=== PATIENT | male | born 1950 | race Caucasian/White ===

== ENCOUNTER 2018-09-09 15:48 | Inpatient (IN) | payer MEDICARE, BC ==
[~2018-09-09] VITALS: Ht 175.3 cm; Wt 68.2 kg
[2018-09-09] MEDS ORDERED: LORAZEPAM 2MG/ML CPJ IM ONE (17:45)
[2018-09-09] MEDS ORDERED: SODIUM CHLORIDE 0.9% 1000ML BAG (SEPSIS BOLUS) IV ONE (17:45)
[2018-09-09 18:17] LABS: HEMATOCRIT. 23.2 % (42.0-52.0); MEAN CORPUSCULAR HEMOGLOBIN 21.2 pg (28.0-32.0); MEAN CORPUSCULAR VOLUME 70.8 fL (80.0-94.0); MEAN PLATELET VOLUME 6.2 fl (7.4-10.4); PLATELET 430 x1000/uL (130-400); RED BLOOD CELL COUNT 3.27 mill/uL (4.7-6.1); RED CELL DISTRIBUTION WIDTH 18.8 % (11.6-14.6)
[2018-09-09 18:20] LABS: CHLORIDE 100 mEq/L (98-107)
[2018-09-09 18:21] LABS: HEMOGLOBIN. 6.9 g/dL (14.0-18.0)
[2018-09-09 18:22] LABS: INR 1.1; PARTIAL THROMBOPLASTIN TIME 30.1 sec (23.4-31.0)
[2018-09-09] MEDS ORDERED: VANCOMYCIN 1 G PREMIX 200 ML IV SCH ×2 (18:30→22:45)
[2018-09-09] MEDS ORDERED: PIPERACILLIN/TAZ 3.375G PREMIX 50 ML IV ONE (18:30)
[2018-09-09] MEDS ORDERED: LORAZEPAM 2MG/ML CPJ IV ONE ×2 (18:30→19:15)
[2018-09-09 18:48] LABS: PLATELET ESTIMATE NORMAL
[2018-09-09] MEDS ORDERED: LORAZEPAM 2MG/ML CPJ ONE (19:21)
[2018-09-09] MEDS ORDERED: MAGNESIUM/ALUMINUM HYDROXIDE/SIMETHICONE 30ML UDC PO PRN (22:45)
[2018-09-09] MEDS ORDERED: ONDANSETRON HCL 4MG/2ML INJ IV PRN (22:45)
[2018-09-09] MEDS ORDERED: LORAZEPAM 2MG/ML CPJ IV PRN (22:45)
[2018-09-09] MEDS ORDERED: DIPHENHYDRAMINE 50MG/ML VIAL IV PRN (22:45)
[2018-09-09] MEDS ORDERED: ACETAMINOPHEN 325MG TABLET PO PRN (22:45)
[2018-09-09] MEDS ORDERED: CLONIDINE 0.1MG TABLET PO PRN (22:45)
[2018-09-09] MEDS ORDERED: VANCOMYCIN 1 G PREMIX 200 ML IV NR (23:28)
[2018-09-10] VITALS (25 sets, daily range): BP systolic 91–158; BP diastolic 48–91
[2018-09-10] MEDS ORDERED: PIPERACILLIN/TAZ 3.375G PREMIX 50 ML IV NR (03:00)
[2018-09-10] MEDS ORDERED: ONDANSETRON HCL 4MG/2ML INJ IV STA (04:24)
[2018-09-10] MEDS ORDERED: ETOMIDATE 2MG/ML 10ML VIAL IV ONE (04:30)
[2018-09-10] MEDS ORDERED: SUCCINYLCHOLINE CHLORIDE 200MG/10ML IV ONE (04:30)
[2018-09-10] MEDS ORDERED: PROPOFOL 10MG/ML 100ML 100 ML IV ONE (04:30)
[2018-09-10] MEDS ORDERED: CLONIDINE 0.1MG TABLET NG PRN (04:45)
[2018-09-10 05:14] LABS: BASOPHILS % 0.4 % (0.0-2.0); EOSINOPHILS % 0.1 % (0.0-5.0); HEMOGLOBIN. 9.5 g/dL (14.0-18.0); LYMPHOCYTES % 7.4 % (20.0-50.0); MEAN CORPUSCULAR HEMOGLOBIN 22.2 pg (28.0-32.0); MEAN CORPUSCULAR VOLUME 74.5 fL (80.0-94.0); MEAN PLATELET VOLUME 6.5 fl (7.4-10.4); NEUTROPHILS % 85.1 % (40.0-76.0); PLATELET 552 x1000/uL (130-400); RED CELL DISTRIBUTION WIDTH 19.8 % (11.6-14.6)
[2018-09-10 05:21] LABS: CHLORIDE 104 mEq/L (98-107)
[2018-09-10 05:24] LABS: CLARITY URINE CLEAR (CLEAR); COLOR URINE YELLOW (YELLOW); KETONES URINE TRACE (NEGATIVE); LEUKOCYTE ESTERASE URINE NEGATIVE (NEGATIVE); NITRITE URINE NEGATIVE (NEGATIVE); OCCULT BLOOD URINE NEGATIVE (NEGATIVE); PROTEIN URINE NEGATIVE (NEGATIVE); SPECIFIC GRAVITY URINE 1.016 (1.005-1.030)
[2018-09-10 05:27] LABS: PHOSPHORUS 3.5 mg/dL (2.5-4.9)
[2018-09-10 05:33] LABS: BG CARBOXYHEMOGLOBIN 0.6 % (0.5-1.5); BG DEOXYHEMOGLOBIN 20.2 % (0.0-5.0); BG FRACTION INSPIRED OXYGEN 50; BG HCO3 ACT 21.4 mmol/L (22.0-26.0); BG METHEMOGLOBIN 0.2 % (0.0-1.5); BG OXYGEN SATURATION 79.6 % (92.0-98.5); BG PCO2 35.7 mmHg (35.0-45.0); BG PH 7.395 (7.350-7.450); BG PO2 46.7 mmHg (75.0-100.0); BG SAMPLE SITE LEFT RADIAL; BG TIDAL VOLUME(mL) 500 mL; BG TOTAL HEMOGLOBIN 9.9 g/dL (12.0-18.0); BG VENT MODE VENT - A/C; BG VENT RATE 14 set
[2018-09-10] MEDS ORDERED: MIDAZOLAM HCL 50 MG in DEXTROSE 5% WATER 40 ML IV ONE (06:00)
[2018-09-10] MEDS ORDERED: ACETAMINOPHEN 325MG TABLET NG PRN (06:45)
[2018-09-10] MEDS ORDERED: PROPOFOL 10MG/ML 100ML 100 ML IV PRN (14:00)
[2018-09-10] MEDS ORDERED: MIDAZOLAM HCL 50 MG in DEXTROSE 5% WATER 50ML IV PRN (15:30)
[2018-09-10] MEDS ORDERED: VANCOMYCIN 1 G PREMIX 200 ML IV SCH (16:00)
[2018-09-10] MEDS: FAMOTIDINE 20MG/2ML VIAL IV SCH (19:46)
[2018-09-10] MEDS: SODIUM CHLORIDE 0.9% 1,000 ML IV SCH (19:46)
[2018-09-10] MEDS: PIPERACILLIN/TAZ 3.375G PREMIX 50 ML IV SCH (19:47)
[2018-09-10] MEDS: ENOXAPARIN 40MG/0.4ML SYR SUBCUT SCH (19:47)
[2018-09-10] MEDS: ACETYLCYSTEINE 100MG/ML 10% VIAL 4ML INH SCH (20:26)
[2018-09-10] MEDS: IPRATROPIUM/ALBUTEROL 0.5-3(2.5)MG/3ML NEB HHN SCH (20:26)
[2018-09-11] VITALS (92 sets, daily range): BP systolic 120–189; BP diastolic 40–139
[2018-09-11] MEDS: PIPERACILLIN/TAZ 3.375G PREMIX 50 ML IV SCH ×2 (02:13→09:08)
[2018-09-11] MEDS: IPRATROPIUM/ALBUTEROL 0.5-3(2.5)MG/3ML NEB HHN SCH ×4 (02:52→20:53)
[2018-09-11] MEDS ORDERED: HYDRALAZINE 20MG/ML VIAL IV PRN (03:30)
[2018-09-11] MEDS: HYDROMORPHONE HCL/PF 2MG/ML CPJ IV PRN ×2 (04:14→22:30)
[2018-09-11 05:40] LABS: HEMATOCRIT. 24.2 % (42.0-52.0); HEMOGLOBIN. 7.5 g/dL (14.0-18.0); MEAN CORPUSCULAR HEMOGLOBIN 22.7 pg (28.0-32.0); MEAN CORPUSCULAR VOLUME 73.1 fL (80.0-94.0); MEAN PLATELET VOLUME 6.7 fl (7.4-10.4); PLATELET 370 x1000/uL (130-400); RED BLOOD CELL COUNT 3.31 mill/uL (4.7-6.1); RED CELL DISTRIBUTION WIDTH 20.1 % (11.6-14.6)
[2018-09-11 06:15] LABS: CHLORIDE 109 mEq/L (98-107)
[2018-09-11 07:32] LABS: BG CARBOXYHEMOGLOBIN 0.6 % (0.5-1.5); BG DEOXYHEMOGLOBIN 0.6 % (0.0-5.0); BG HCO3 ACT 19.8 mmol/L (22.0-26.0); BG METHEMOGLOBIN 0.3 % (0.0-1.5); BG OXYGEN SATURATION 99.4 % (92.0-98.5); BG OXYHEMOGLOBIN 98.5 % (94.0-97.0); BG PCO2 30.6 mmHg (35.0-45.0); BG PH 7.428 (7.350-7.450); BG PO2 197.6 mmHg (75.0-100.0); BG SAMPLE SITE RIGHT RADIAL; BG TIDAL VOLUME(mL) 500 mL; BG TOTAL HEMOGLOBIN 7.9 g/dL (12.0-18.0); BG VENT MODE VENT - A/C; BG VENT RATE 14 set
[2018-09-11] MEDS: ACETYLCYSTEINE 100MG/ML 10% VIAL 4ML INH SCH ×2 (07:59→14:46)
[2018-09-11] MEDS: SODIUM CHLORIDE 0.9% 1,000 ML IV SCH (08:24)
[2018-09-11 08:38] LABS: PLATELET ESTIMATE NORMAL
[2018-09-11] MEDS: FAMOTIDINE 20MG/2ML VIAL IV SCH ×2 (08:53→22:19)
[2018-09-11] MEDS ORDERED: MAGNESIUM 2 G PREMIX 50 ML IV SCH (10:00)
[2018-09-11] MEDS ORDERED: LIDOCAINE HCL/PF 1% 2ML VIAL ONE (10:52)
[2018-09-11] MEDS: VANCOMYCIN 750 MG PREMIX 150 ML IV SCH ×2 (14:00→14:58)
[2018-09-11 23:20] LABS: MEAN CORPUSCULAR HEMOGLOBIN 22.6 pg (28.0-32.0); MEAN CORPUSCULAR VOLUME 72.3 fL (80.0-94.0); PLATELET 364 x1000/uL (130-400); RED BLOOD CELL COUNT 2.72 mill/uL (4.7-6.1); RED CELL DISTRIBUTION WIDTH 19.5 % (11.6-14.6)
[2018-09-11 23:27] LABS: HEMOGLOBIN 6.2 g/dL (14.0-18.0)
[2018-09-11 23:28] LABS: HEMATOCRIT 19.7 % (42.0-52.0)
[2018-09-12] VITALS (42 sets, daily range): BP systolic 105–139; BP diastolic 48–94
[2018-09-12] MEDS: SODIUM CHLORIDE 0.9% 1,000 ML IV SCH ×3 (01:52→21:42)
[2018-09-12] MEDS: ACETYLCYSTEINE 100MG/ML 10% VIAL 4ML INH SCH ×3 (03:11→16:35)
[2018-09-12] MEDS: IPRATROPIUM/ALBUTEROL 0.5-3(2.5)MG/3ML NEB HHN SCH ×4 (03:11→20:20)
[2018-09-12] MEDS: PROPOFOL 10MG/ML 100ML 100 ML IV PRN ×2 (03:46→14:24)
[2018-09-12] MEDS: PIPERACILLIN/TAZ 3.375G PREMIX 50 ML IV SCH ×3 (03:47→21:41)
[2018-09-12 05:48] LABS: HEMATOCRIT. 21.2 % (42.0-52.0); MEAN CORPUSCULAR HEMOGLOBIN 22.2 pg (28.0-32.0); MEAN CORPUSCULAR VOLUME 73.5 fL (80.0-94.0); MEAN PLATELET VOLUME 6.7 fl (7.4-10.4); PLATELET 346 x1000/uL (130-400); RED BLOOD CELL COUNT 2.88 mill/uL (4.7-6.1); RED CELL DISTRIBUTION WIDTH 20.1 % (11.6-14.6)
[2018-09-12 05:55] LABS: CHLORIDE 110 mEq/L (98-107)
[2018-09-12 06:24] LABS: HEMOGLOBIN. 6.4 g/dL (14.0-18.0)
[2018-09-12] MEDS: FAMOTIDINE 20MG/2ML VIAL IV SCH ×2 (08:41→20:37)
[2018-09-12] MEDS: SODIUM HYPOCHLORITE 0.125% 473ML SOLUTION TOP SCH (08:41)
[2018-09-12 10:57] LABS: PLATELET ESTIMATE NORMAL
[2018-09-12] MEDS: VANCOMYCIN 750 MG PREMIX 150 ML IV SCH (14:24)
[2018-09-12] MEDS: IPRATROPIUM/ALBUTEROL 0.5-3(2.5)MG/3ML NEB INH PRN (16:35)
[2018-09-12] MEDS: ENOXAPARIN 40MG/0.4ML SYR SUBCUT SCH (17:05)
[2018-09-12] MEDS: HYDROMORPHONE HCL/PF 2MG/ML CPJ IV PRN (17:43)
[2018-09-13] VITALS (34 sets, daily range): BP systolic 90–150; BP diastolic 41–88
[2018-09-13] MEDS: PROPOFOL 10MG/ML 100ML 100 ML IV PRN (01:08)
[2018-09-13] MEDS: VANCOMYCIN 750 MG PREMIX 150 ML IV SCH (01:10)
[2018-09-13] MEDS: IPRATROPIUM/ALBUTEROL 0.5-3(2.5)MG/3ML NEB HHN SCH ×2 (02:34→08:12)
[2018-09-13] MEDS: ACETYLCYSTEINE 100MG/ML 10% VIAL 4ML INH SCH ×2 (02:34→08:12)
[2018-09-13] MEDS: PIPERACILLIN/TAZ 3.375G PREMIX 50 ML IV SCH (05:05)
[2018-09-13] MEDS: FAMOTIDINE 20MG/2ML VIAL IV SCH (08:54)
[2018-09-13] MEDS: SODIUM HYPOCHLORITE 0.125% 473ML SOLUTION TOP SCH (08:54)
[2018-09-13] MEDS ORDERED: LORAZEPAM 2MG/ML CPJ IV PRN (10:00)
[2018-09-13] MEDS ORDERED: HALOPERIDOL LACTATE 5MG/ML VIAL IM PRN (10:00)
[2018-09-13] MEDS: SODIUM CHLORIDE 0.9% 1,000 ML IV SCH ×6 (11:50→12:00)
[2018-09-13] MEDS: MORPHINE SULFATE 250 MG in DEXT 5% WATER 240 ML IV PRN (13:35)
[2018-09-13] MEDS: IPRATROPIUM/ALBUTEROL 0.5-3(2.5)MG/3ML NEB INH PRN ×2 (14:10→20:02)
[2018-09-14] VITALS (36 sets, daily range): BP systolic 87–135; BP diastolic 49–78
[2018-09-14] MEDS: SODIUM CHLORIDE 0.9% 1,000 ML IV SCH ×3 (01:41→20:00)
[2018-09-14] MEDS: IPRATROPIUM/ALBUTEROL 0.5-3(2.5)MG/3ML NEB INH PRN ×3 (01:41→14:08)
[2018-09-14] MEDS: MORPHINE SULFATE 250 MG in DEXT 5% WATER 240 ML IV PRN (15:07)
[2018-09-15] VITALS: BP 108/49
[2018-09-15 04:00] VITALS: BP 116/62
[2018-09-15 08:00] VITALS: BP 106/61
[2018-09-15 12:00] VITALS: BP 128/60
[2018-09-15 16:00] VITALS: BP 129/69
[2018-09-15] MEDS ORDERED: LORAZEPAM 2MG/ML CPJ IV PRN (16:00)
[2018-09-15] MEDS: SODIUM CHLORIDE 0.9% 1,000 ML IV SCH (16:12)
[2018-09-15 20:00] VITALS: BP 110/57
[2018-09-16] VITALS: BP 115/59
[2018-09-16] MEDS: MORPHINE SULFATE 250 MG in DEXT 5% WATER 240 ML IV PRN (03:00)
[2018-09-16 04:00] VITALS: BP 97/51
[2018-09-16 08:00] VITALS: BP 92/32
== END 2018-09-16 10:20 | disposition expired | DRG 870 ==
LOC: ER 16:03 → EDBEDREQ 21:17 → EDBEDREQTM 21:17 → MICUSO 09-10 04:23 → EDBEDREQ 09-10 04:29 → EDBEDREQSVC 09-10 04:29 → EDBEDREQDT 09-10 04:29 → EDBEDREQTM 09-10 04:29 → ENRESERV 09-10 15:36 → MICUSO 09-10 16:50 → 6EST 09-14 21:15
PROVIDERS: ADMIT Internal Medicine; ATTEND Internal Medicine
PROC: 30233N1 Transfusion of Nonautologous Red Blood Cells into Peripheral Vein, Percutaneous Approach (ICD-10-PCS; 2018-09-09)
PROC: 5A1955Z Respiratory Ventilation, Greater than 96 Consecutive Hours (ICD-10-PCS; principal; 2018-09-10)
PROC: 0BH17EZ Insertion of Endotracheal Airway into Trachea, Via Natural or Artificial Opening (ICD-10-PCS; 2018-09-10)
DX: A41.9 Sepsis, unspecified organism (principal); E43 Unspecified severe protein-calorie malnutrition; J96.00 Acute respiratory failure, unspecified whether with hypoxia or hypercapnia; G93.41 Metabolic encephalopathy; J69.0 Pneumonitis due to inhalation of food and vomit; E87.2 Acidosis; Z66 Do not resuscitate; C43.62 Malignant melanoma of left upper limb, including shoulder; D64.9 Anemia, unspecified; E87.70 Fluid overload, unspecified; F99 Mental disorder, not otherwise specified; Z51.5 Encounter for palliative care; R19.00 Intra-abdominal and pelvic swelling, mass and lump, unspecified site; L89.320 Pressure ulcer of left buttock, unstageable; L89.310 Pressure ulcer of right buttock, unstageable; L89.890 Pressure ulcer of other site, unstageable; Z78.1 Physical restraint status; Z68.22 Body mass index [BMI] 22.0-22.9, adult
CPT/HCPCS: 36415; 36600; 71045; 80048; 80202; 82375; 82805; 83540; 83550; 83605; 83735; 84100; 84145; 84443; 84478; 84484; 85027; 86850; 86900; 86920; 87070; 93005; 94002; 94003; 94640; 96365; 96368; 96372; 99291; J0330; J0360; J1170; J1650; J2060; J2250; J2274; J2543; J2704; J3370; J3475; J3490; J7030; J7040; J7050; J7060; J7608; J7620; P9021; A4315